=== PATIENT | male | born 2005 ===

== ENCOUNTER 2024-09-16 16:35 | Emergency (ER) | payer SELFPAY ==
[~2024-09-16] VITALS: Ht 185.4 cm; Wt 68.0 kg
[2024-09-16 17:16] LABS: Source, Urine Clean Catch
[2024-09-16 17:38] LABS: Appearance, Urine Clear (Clear); Bilirubin, Urine Neg (Neg); Blood, Urine Neg (Neg); Color, Urine Yellow (P-Yellow); Glucose Qualitative, Urine Neg (Neg); Ketones, Urine Neg (Neg); Leukocyte Esterase, Urine Neg (Neg); Nitrite, Urine Neg (Neg); Protein, Urine Neg (Neg); Urobilinogen, Urine NORM (Normal)
== END 2024-09-16 19:22 | disposition home or self-care (01) ==
LOC: ER 16:35
PROVIDERS: Student in an Organized Health Care Education/Training Program
DX: K40.90 Unilateral inguinal hernia, without obstruction or gangrene, not specified as recurrent (principal); Z88.0 Allergy status to penicillin; Z91.040 Latex allergy status
CPT/HCPCS: 76870; 81003; 99284-25

== ENCOUNTER 2024-10-17 19:07 | Emergency (ER) | payer OTHER ==
[~2024-10-17] VITALS: Ht 185.4 cm; Wt 68.0 kg
== END 2024-10-17 23:44 | disposition left against medical advice (07) ==
LOC: ER 19:07
DX: M79.672 Pain in left foot (principal); Z53.21 Procedure and treatment not carried out due to patient leaving prior to being seen by health care provider
CPT/HCPCS: 73630